=== PATIENT | female | born 1940 | race Caucasian/White ===

== ENCOUNTER → 2023-11-19 06:54 | Outpatient (CLI) | payer MEDICARE, SELFPAY ==
[2023-11-19 08:55] LABS: Add Manual Diff / Slide Review NO; Basophils Absolute Auto 0 /uL (0-100); Basophils Percent Auto 0.9 % (0-2); Eosinophils Absolute Auto 100 /uL (0-450); Eosinophils Percent Auto 1.7 % (2-4); Hematocrit 37.3 % (36-46); Hemoglobin 12.5 g/dL (12.0-16.0); Lymphocytes Absolute Auto 1800 /uL (1100-4500); Lymphocytes Percent Auto 35.1 % (25-40); Mean Corpuscular HGB Conc 33.6 % (30-36); Mean Corpuscular Volume 86.5 fL (80-100); Monocytes Absolute Auto 500 /uL (0-900); Monocytes Percent Auto 8.9 % (3-14); Neutrophils Absolute Auto 2700 /uL (1500-7000); Neutrophils Percent Auto 53.4 % (50-75); Platelet Count 194 X10^3/uL (150-400); Red Blood Cell Count 4.31 X10^6/uL (4.0-5.2); Red Cell Distribution Width 13.8 % (11.6-14.8); White Blood Cell Count 5.1 X10^3/uL (4.5-11.0)
[2023-11-19 09:13] LABS: Alanine Aminotransferase 23 IU/L (<35); Albumin 4.1 g/dL (3.5-5.0); Albumin Globulin Ratio 1.4 (1.0-2.8); Alkaline Phosphatase 61 U/L (38-126); Aspartate Aminotransferase 39 IU/L (14-36); BUN Creatinine Ratio 26.3 (6-22); Bilirubin Total 0.5 mg/dL (0.2-1.3); Blood Urea Nitrogen 15 mg/dL (7-17); C-Reactive Protein Quant 0.9 mg/dL (<1.0); Calcium 9.1 mg/dL (8.4-10.2); Carbon Dioxide 29 mmol/L (22-32); Chloride 101 mmol/L (98-107); Estimated Glomerular Filt Rate > 60 mL/min (>60); Globulin 2.9 g/dL (1.7-4.1); Glucose 85 mg/dL (80-110); HEMOLYSIS < 15 (0-50); Potassium 4.1 mmol/L (3.4-5.1); Rheumatoid Factor 41.2 IU/mL (<12.0); Sodium 133 mmol/L (137-145)
[2023-11-19 09:27] LABS: Vitamin D 25 Hydroxy (D3) 61.5 ng/mL (30.0-100.0)
== END ==
PROVIDERS: PCP Family Medicine; Referring Provider Family Medicine; Visit Provider Family Medicine
DX: M81.0 Age-related osteoporosis without current pathological fracture (principal); M19.90 Unspecified osteoarthritis, unspecified site; Z82.69 Family history of other diseases of the musculoskeletal system and connective tissue
CPT/HCPCS: 36415; 80053; 82306; 85025; 86140; 86430

== ENCOUNTER → 2023-11-27 10:04 | Outpatient (CLI) | payer MEDICARE, SELFPAY ==
--- NOTE | 2023-11-27 10:05 | DI.RAD.S_ITS ---
Bone Density Report Name: LILY SCHULZ Age: 83 Sex: Female Ethnicity: White Date of : 1940 Indication: postmenopausal; screening for osteoporosis; prior fracture; Referring Provider: KODY ELLINGTON Study: Bone densitometry was performed. Exam Date: November 27, 2023 Accession number: [id number] Bone Density: Region BMD T-score Z-score Classification AP Spine(L1, L2, L3) 0.842 -1.6 1.2 Osteopenia Femoral Neck (Left) 0.652 -1.8 0.7 Osteopenia Total Hip (Left) 0.841 -0.8 1.5 Normal Femoral Neck (Right) 0.633 -1.9 0.6 Osteopenia Total Hip (Right) 0.840 -0.8 1.5 Normal Total Hip Mean 0.841 -0.8 1.5 Normal World Health Organization criteria for BMD impression classify patients as: Normal (T-score at or above -1.0), Osteopenia (T-score between -1.0 and -2.5), or Osteoporosis (T-score at or below -2.5). 10-year Fracture Risk: FRAX not reported because: Prior hip or vertebral fracture Treated for osteoporosis Impression: The patient has low bone mass, based on the Right Femoral Neck T-score. The patient has risk factors, including: previous fracture. Discussion: It is important to ask patients whether they are taking their medications and to encourage continued and appropriate compliance with their osteoporosis therapies to reduce fracture risk. It is also important to review their risk factors and encourage appropriate calcium and vitamin D intakes, exercise, fall prevention and other lifestyle measures. Follow-Up: Consider a repeat BMD and Vertebral Fracture Assessment (VFA) exam in 2 years or sooner if medically necessary, to reassess this patient's status. Reported by: [facility] LUDWIN CROOK M.D. on 11/27/2023 11:18:00 AM.
== END ==
LOC: RAD 10:04
PROVIDERS: PCP Family Medicine; Referring Provider Family Medicine; Visit Provider Family Medicine
DX: M81.0 Age-related osteoporosis without current pathological fracture (principal)
CPT/HCPCS: 77080

== ENCOUNTER → 2023-12-12 11:49 | Outpatient (CLI) | payer MEDICARE, SELFPAY ==
[2023-12-12 13:43] LABS: Erythrocyte Sedimentation Rate 8 MM/HR (0-20)
[2023-12-12 14:39] LABS: BUN Creatinine Ratio 32.3 (6-22); Blood Urea Nitrogen 20 mg/dL (7-17); Calcium 10.4 mg/dL (8.4-10.2); Carbon Dioxide 30 mmol/L (22-32); Chloride 96 mmol/L (98-107); Estimated Glomerular Filt Rate > 60 mL/min (>60); Glucose 93 mg/dL (80-110); HEMOLYSIS < 15 (0-50); Potassium 4.2 mmol/L (3.4-5.1); Sodium 135 mmol/L (137-145)
[2023-12-12 14:58] LABS: Vitamin D 25 Hydroxy (D3) 68.4 ng/mL (30.0-100.0)
[2023-12-14 18:27] LABS: CCP Antibodies IgG/IgA 6 units (0-19)
[2023-12-17 06:32] LABS: Calcium 9.9 mg/dL (8.7-10.3); Parathyroid Hormone, Intact 21 pg/mL (15-65)
[2023-12-17 15:14] LABS: ANA Screen, IFA Negative (.)
== END ==
LOC: LAB 11:50
PROVIDERS: PCP Family Medicine; Referring Provider Family Medicine; Visit Provider Family Medicine
DX: M81.0 Age-related osteoporosis without current pathological fracture (principal); Z78.0 Asymptomatic menopausal state; R76.8 Other specified abnormal immunological findings in serum; Z82.69 Family history of other diseases of the musculoskeletal system and connective tissue; M19.90 Unspecified osteoarthritis, unspecified site; M25.541 Pain in joints of right hand; M25.542 Pain in joints of left hand
CPT/HCPCS: 36415; 80048; 82306; 82310; 83970; 85651; 86038; 86200

== ENCOUNTER → 2023-12-13 08:35 | Outpatient (CLI) | payer MEDICARE, SELFPAY ==
--- NOTE | 2023-12-13 08:37 | DI.RAD.S_ITS ---
PROCEDURE: XR HAND RT MIN 3V INDICATIONS: Evaluate for RA TECHNIQUE: 3 views of the hand(s) acquired. COMPARISON: None. FINDINGS: Bones: No fractures or dislocations. Diffuse appearance of moderate IP narrowing most severe at the 2nd proximal IP joint as well as moderate to severe at the 1st CMC joint and triscaphe joint. Scattered areas of mild periarticular osteophytes and subchondral sclerosis are present. There are mild areas of periarticular subchondral lucency. Radiocarpal narrowing is present. Soft tissues: No suspicious soft tissue calcifications. IMPRESSION: IP and CMC arthritic change. Areas of subchondral lucency are present which may be indicative of subchondral cysts versus erosions. Recommend correlation to clinical laboratory values. Dictated by: Yenny Washington M.D. on 12/13/2023 at 17:00 Approved by: Yenny Washington M.D. on 12/13/2023 at 17:02
--- NOTE | 2023-12-13 08:37 | DI.RAD.S_ITS ---
PROCEDURE: XR HAND LT MIN 3V INDICATIONS: Evaluate for RA TECHNIQUE: 3 views of the hand(s) acquired. COMPARISON: None. FINDINGS: Bones: No fractures or dislocations. Diffuse mild to moderate IP degenerative narrowing, moderate to severe at the 2nd PIP as well as severe at the 1st CMC joint. Areas of subchondral sclerosis and periarticular osteophytes are present. There is scattered areas of periarticular lucency. In addition, areas of lucency are identified at the base of the 1st and 2nd metacarpals. Radiocarpal and triscaphe narrowing are present. Soft tissues: No suspicious soft tissue calcifications. 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 Scattered areas of periarticular and other lucencies are present which can represent subchondral cysts or under appropriate clinical never sona circumstances erosions. Dictated by: Yenny Washington M.D. on 12/13/2023 at 16:59 Approved by: Yenny Washington M.D. on 12/13/2023 at 17:00
== END ==
LOC: RAD 08:36
PROVIDERS: PCP Family Medicine; Referring Provider Family Medicine; Visit Provider Family Medicine
DX: M25.542 Pain in joints of left hand (principal); M25.541 Pain in joints of right hand; M19.90 Unspecified osteoarthritis, unspecified site; R76.8 Other specified abnormal immunological findings in serum; Z82.69 Family history of other diseases of the musculoskeletal system and connective tissue
CPT/HCPCS: 73130

== ENCOUNTER → 2024-01-08 06:58 | Outpatient (CLI) | payer MEDICARE, SELFPAY ==
[2024-01-08 08:38] LABS: BUN Creatinine Ratio 26.4 (6-22); Blood Urea Nitrogen 19 mg/dL (7-17); Calcium 9.6 mg/dL (8.4-10.2); Carbon Dioxide 28 mmol/L (22-32); Chloride 98 mmol/L (98-107); Estimated Glomerular Filt Rate > 60 mL/min (>60); Glucose 89 mg/dL (80-110); HEMOLYSIS < 15 (0-50); Potassium 4.6 mmol/L (3.4-5.1); Sodium 134 mmol/L (137-145)
[2024-01-08 08:51] LABS: Vitamin D 25 Hydroxy (D3) 73.4 ng/mL (30.0-100.0)
[2024-01-10 09:47] LABS: Calcium 9.4 mg/dL (8.7-10.3); Parathyroid Hormone, Intact 35 pg/mL (15-65)
== END ==
PROVIDERS: PCP Family Medicine; Referring Provider Family Medicine; Visit Provider Family Medicine
DX: M19.90 Unspecified osteoarthritis, unspecified site (principal); M81.0 Age-related osteoporosis without current pathological fracture
CPT/HCPCS: 36415; 80048; 82306; 82310; 83970

== ENCOUNTER → 2024-07-14 08:18 | Outpatient (CLI) | payer MEDICARE, SELFPAY ==
[2024-07-14 10:11] LABS: BUN Creatinine Ratio 21.5 (6-22); Blood Urea Nitrogen 14 mg/dL (7-17); Calcium 9.6 mg/dL (8.4-10.2); Carbon Dioxide 32 mmol/L (22-32); Chloride 98 mmol/L (98-107); Estimated Glomerular Filt Rate > 60 mL/min (>60); Glucose 103 mg/dL (80-110); HEMOLYSIS < 15 (0-50); Potassium 4.4 mmol/L (3.4-5.1); Sodium 135 mmol/L (137-145)
[2024-07-14 10:29] LABS: Vitamin D 25 Hydroxy (D3) 60.3 ng/mL (30.0-100.0)
== END ==
PROVIDERS: PCP Family Medicine; Referring Provider Family Medicine; Visit Provider Family Medicine
DX: Z01.812 Encounter for preprocedural laboratory examination (principal); M81.0 Age-related osteoporosis without current pathological fracture; R76.8 Other specified abnormal immunological findings in serum; M19.90 Unspecified osteoarthritis, unspecified site
CPT/HCPCS: 36415; 80048; 82306; 82310; 83970

== ENCOUNTER → 2024-12-16 08:23 | Outpatient (CLI) | payer MEDICARE, SELFPAY ==
[2024-12-16 09:41] LABS: BUN Creatinine Ratio 25.8 (6-22); Blood Urea Nitrogen 16 mg/dL (7-17); Calcium 9.6 mg/dL (8.4-10.2); Carbon Dioxide 32 mmol/L (22-32); Chloride 96 mmol/L (98-107); Estimated Glomerular Filt Rate > 60 mL/min (>60); Glucose 100 mg/dL (80-110); HEMOLYSIS < 15 (0-50); Potassium 4.3 mmol/L (3.4-5.1); Sodium 133 mmol/L (137-145)
== END ==
LOC: LAB 08:25
PROVIDERS: PCP Family Medicine; Referring Provider Family Medicine; Visit Provider Family Medicine
DX: M19.90 Unspecified osteoarthritis, unspecified site (principal); M81.0 Age-related osteoporosis without current pathological fracture; Z79.899 Other long term (current) drug therapy
CPT/HCPCS: 36415; 80048

== ENCOUNTER → 2025-06-17 08:18 | Outpatient (CLI) | payer MEDICARE, SELFPAY ==
[2025-06-17 08:39] LABS: Add Manual Diff / Slide Review NO; Hematocrit 36.8 % (36-46); Hemoglobin 12.5 g/dL (12.0-16.0); Lymphocytes Absolute Auto 1400 /uL (1100-4500); Mean Corpuscular HGB Conc 33.9 % (30-36); Mean Corpuscular Hemoglobin 29.2 PG (26-34); Mean Corpuscular Volume 86.1 fL (80-100); Platelet Count 203 X10^3/uL (150-400)
[2025-06-17 08:56] LABS: Alanine Aminotransferase 21 IU/L (<35); Albumin 4.5 g/dL (3.5-5.0); Albumin Globulin Ratio 1.9 (1.0-2.8); Alkaline Phosphatase 62 U/L (38-126); Blood Urea Nitrogen 15 mg/dL (7-17); Calcium 9.5 mg/dL (8.4-10.2); Carbon Dioxide 30 mmol/L (22-32); Chloride 96 mmol/L (98-107); Estimated Glomerular Filt Rate > 60 mL/min (>60); Globulin 2.4 g/dL (1.7-4.1); Glucose 121 mg/dL (70-99); HEMOLYSIS < 15 (0-50); Potassium 4.8 mmol/L (3.4-5.1); Sodium 133 mmol/L (137-145); Total Protein 6.9 g/dL (6.3-8.2)
[2025-06-17 09:11] LABS: Vitamin D 25 Hydroxy (D3) 68.8 ng/mL (30.0-100.0)
== END ==
PROVIDERS: PCP Family Medicine; Referring Provider Family Medicine; Visit Provider Family Medicine
DX: Z79.899 Other long term (current) drug therapy (principal); Z01.89 Encounter for other specified special examinations
CPT/HCPCS: 36415; 80053; 82306; 85025

== ENCOUNTER → 2025-07-02 08:12 | Outpatient (CLI) | payer MEDICARE, SELFPAY ==
--- NOTE | 2025-07-02 08:13 | DI.MRI.S_ITS ---
PROCEDURE: MR LOWER LEG LT WO/W CON INDICATIONS: eval mass for surgical planning TECHNIQUE: Noncontrast coronal T1 spin echo and STIR, sagittal T1 spin echo with fat saturation and STIR, axial T1 spin echo and T2 fast spin echo with fat saturation. After the administration of contrast, axial/sagittal/coronal T1 spin echo with fat saturation through the left leg. COMPARISON: [facility], CR, ORTHO-XR KNEE WB RIGHT, 05/13/2025, 14:06. FINDINGS: Image quality: Excellent. Bones: Marrow signal of the right tibia and fibula is unremarkable. There is a 4 mm osteochondral lesion in the right medial talus dome, incompletely evaluated. Status post left knee arthroplasty, creating artifacts and limits evaluation. No acute fracture of the left knee leg. No suspicious marrow replacing lesion in the left leg. Soft tissues: There is a 1.2 x 0.6 cm T2 hyperintense nonenhancing lesion in the subcutaneous fat of the anterior left mid leg (8:8). Mild muscle edema of the medial head of the gastrocnemius and the medial aspect of the soleus, nonspecific and may represent mild muscle strain. The visualized flexors, extensor, peroneal, and Achilles tendons are grossly unremarkable. IMPRESSION: 1. 1.2 cm nonenhancing lesion in the subcutaneous fat of the anterior left mid leg, representing a simple cyst. 2. 4 mm osteochondral lesion in the right medial talus dome, incompletely evaluated. Dictated by: Caro Rider M.D. on 07/02/2025 at 16:37 Approved by: Caro Rider M.D. on 07/02/2025 at 16:48
== END ==
LOC: MRI 08:13
PROVIDERS: PCP Family Medicine; Referring Provider Family Medicine; Visit Provider Orthopaedic Surgery
DX: R22.42 Localized swelling, mass and lump, left lower limb (principal); M89.9 Disorder of bone, unspecified
CPT/HCPCS: 73720; A9579

== ENCOUNTER 2025-11-10 09:06 | Day surgery (SDC) | payer MEDICARE, SELFPAY ==
[2025-11-04 13:02] VITALS: BMI 21.4
--- NOTE | 2025-11-10 | PATH_ITS ---
[facility] Accession Number: [id number] No. of containers..01 Tissue . 01 Material submitted: . leg - LEFT LOWER LEG . 01 Clinical history: . LEFT LOWER LEG SEBACEOUS CYST CAPSULE . 01 Diagnosis: SKIN, LEFT LOWER LEG, BIOPSY: Changes suggestive of the surface of a ruptured epidermoid cyst, see note. . NOTE: As much of the lesion is deep to the sample, the findings may not be public relations representative of the lesion as a whole. Clinical correlation and followup is recommended. MRV 11/17/2025 1520 Local . 01 Electronically signed: . Mark Hensley MD, Dermatopathologist NPI- [id number] . 01 Gross description: . Received one formalin-filled container, labeled with the patient's name and labeled left lower leg sebaceous cyst capsule. Specimen consists of a baxter-marin piece of tissue, which measures 0.7 x 0.7 x 0.3 cm. Inked, bisected, and totally submitted in one cassette. ([id number]) /ZANDER 11/15/20255 Local . 01 Pathologist provided ICD-10: L72.0 . 01 CPT . 102611 Specimen Comment: A courtesy copy of this report has been sent to [facility] Performed at: [address] [address], [place], [place] [id number] MD Fabricio Garcia MD Phone: [phone]
[2025-11-10 09:53] VITALS: BP 157/81; PULSE 78; RESP 16; TEMP 36.9; O2SAT 98
--- NOTE | 2025-11-10 10:01 | PM.PREOP ---
Pre-operative Note COVID-19 COVID-19 status: Not tested Interval Note History & Physical reviewed/Exam performed by Physician: Yes Changes to H&P: No
[2025-11-10] MEDS: LACTATED RINGERS 1,000 ML 42 ML IV (10:16)
--- NOTE | 2025-11-10 10:34 | SUR.OPER ---
Supine on padded OR bed, head on pillow, arms secured on padded arm boards at <90 degrees abduction, legs uncrossed, safety belt at torso, tape over blanket over non operative lower leg. All pressure points padded and protected. Surgeon in room to assist with positioning and approve final position.
[2025-11-10 10:52] VITALS: BP 136/60; PULSE 75; RESP 8; TEMP 36.6; O2SAT 90
--- NOTE | 2025-11-10 10:53 | P.OP_ITS ---
Operative Date/Time/Diagnoses Date of procedure: 11/10/25 Time of procedure: 10:30 Pre-op diagnosis: left lower leg mass Post-op diagnosis: same Procedure & Clinicians Procedure: excisional biopsy left lower leg mass Same procedure(s) as scheduled: Yes Surgeon: Antoinette Wilson Assisted?: Yes Plunger Shovel Operator: Salima Washington Anesthesia Type: General Operative Notes Findings: see below Closure Type: primary Specimen(s): other (tissue and fluid sent for culture and path) Applied: none Estimated Blood Loss (mL): 2 Blood products transfused: none Tourniquet time (min): 10 Procedure in detail: Procedure in Detail: The patient was met in the pre-operative hold area. Consent was verified and operative extremity was signed. The patient then met with anesthesia and was brought back to the operating room. The patient was placed supine on the operating table. Anesthetic was administered.? The extremity was then prepped and draped in the usual sterile fashion. A timeout was performed per protocol. All were in agreement and we proceeded. ? An Esmarch was used to exsanguinate the left lower extremity and the tourniquet was inflated to 250 mm Hg of mercury.? A 1 cm oblique incision was made.? Dissection was taken down to the cyst.? While dissecting down to the cyst it was punctured as it was closely adhered to the skin. Cottage cheese type fluid was expressed. The cyst wall was dissected out.? This was sent for evaluation by pathology.? The wound was copiously irrigated and closed with 3-0 nylon.? A sterile dressing was applied consisting of Xeroform plain gauze sterile webrile and an Edd wrap.? At the end of the case 10 cc of 0.5% Marcaine was infiltrated into the incision site. Sutures will be in place for 2 weeks and the patient will return to clinic for suture removal. ? Complications: none Post-operative Condition: stable Disposition: PACU
[2025-11-10 11:05] VITALS: BP 148/72; PULSE 85; RESP 12; TEMP 36.6; O2SAT 95
[2025-11-10 11:33] VITALS: BP 155/77; PULSE 79; RESP 18; TEMP 36.4; O2SAT 98
== END 2025-11-10 11:34 | disposition home or self-care (01) ==
PROVIDERS: PCP Family Medicine; Referring Provider Orthopaedic Surgery; Visit Provider Orthopaedic Surgery
PROC: (CPT 27618; principal; 2025-11-10 10:45)
DX: R22.42 Localized swelling, mass and lump, left lower limb (principal)
CPT/HCPCS: 27618; 87070; 87075; 87205; J0689; J1100; J1885; J2405; J2704; J3010; J7120